=== PATIENT | male | born 1945 | race Caucasian/White ===

== ENCOUNTER → 2017-01-06 | Outpatient (CLI) | payer MEDICARE, OTHER ==
--- NOTE | 2017-01-06 14:37 | CT ---
EXAM DESCRIPTION: Abdomen w/wo Contrast CLINICAL HISTORY: 71 years Male, MALIGNANT CARCINOID TUMER OF SMALL INTESTINE COMPARISON: June 18, 2016 TECHNIQUE: Pre and postcontrast CT images of the abdomen are obtained. FINDINGS: Diffuse heterogeneous attenuation of the liver is seen compared to previous exam. There is overall diffuse heterogeneous fatty infiltration of the liver with focal areas of enhancement. The largest lesion in the left lobe of the liver shows heterogeneous attenuation on today's exam measuring 5.6 cm compared to 4.5 cm previously. Largest enhancing lesion in the inferior right lobe of the liver measures 5.3 cm compared to 4.1 cm previously. The visualized lung bases show no acute findings. Increased AP diameter of the chest is seen. The right retrocrural lymph node now measures 17 mm stable from previous. Lymph nodes in the periportal region are stable in size and number. The left periaortic lymph nodes are relatively unchanged. No new mesenteric lymphadenopathy is seen. Surgical suture line in small bowel of the right central abdomen is seen. Mild groundglass attenuation to the root of the mesentery is noted. Nonobstructing bilateral nephrolithiasis is seen. 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 The stomach is unremarkable. Occasional diverticula in the colon are seen without associated inflammatory changes or fluid collections. Nodule in the right adrenal gland is stable from previous. [id number] degenerative changes of the spine are seen. The pancreas, spleen, and gallbladder are unremarkable. IMPRESSION: New diffuse heterogeneous appearance to the liver. The innumerable hepatic lesions now show enhancement and are overall increased size compared to previous exam. The appearance of the liver and these lesions could represent interval posttherapeutic changes. Stable appearance to right retrocrural, periportal, and left para-aortic lymphadenopathy compared to previous. No CT evidence of local tumor recurrence. Nonobstructive bilateral nephrolithiasis. Electronically signed by: Dwayne Salgado MD 01/06/2017 2:36 PM [employer]
== END | disposition home or self-care (01) ==
LOC: CT 08:22
PROVIDERS: ATTEND Internal Medicine Hematology & Oncology
DX: C7A.019 Malignant carcinoid tumor of the small intestine, unspecified portion (principal)

== ENCOUNTER 2017-02-11 21:34 | Emergency (ER) | payer MEDICARE, OTHER ==
--- NOTE | 2017-02-11 22:14 | ED.PDOC ---
History of Present Illness - General Chief Complaint: Upper Extremity Injury Stated Complaint: ELBOW SWELLING Time Seen by Provider: 02/11/17 21:48 Source: patient, RN notes reviewed, Vital Signs reviewed Exam Limitations: no limitations - History of Present Illness Initial Comments: During physical therapy therapist noticed that L elbow appeared to be swollen. Patient came in to get it checked out. It is a little bit painful but otherwise is not bothering him. Occurred: this afternoon Pain - Upper Extremity: mild: Elbow, left Method of Injury: unknown Improving Factors: nothing Worsening Factors: nothing Allergies/Adverse Reactions: Allergies Propoxyphene [From Darvocet-N] Allergy (Unknown, Verified 08/08/16 16:32) Home Medications: Ambulatory Orders Aspirin [Aspirin Adult Low Dose] 81 mg PO DAILY 06/19/16 Bismuth Subsalicylate [Kaopectate] 262 mg PO PRN PRN 06/19/16 Clonidine HCl 0.1 mg PO BID 06/19/16 Diphenoxylate W/ Atropine [Diphenoxylate/Atropine 2.5-0.025 mg] 2.5 mg PO PRN PRN 06/19/16 Gabapentin 600 mg PO BID 06/19/16 Glimepiride 1 mg PO DAILY 06/19/16 Metoprolol Succinate [Toprol XL] 100 mg PO BID 06/19/16 Multiple Vitamin [Multi Vitamin Mens] 1 tab PO DAILY 06/19/16 [place]-3 Fatty Acids [Fish Oil 1000 mg] 1 cap PO DAILY 06/19/16 Pantoprazole Sodium 40 mg PO DAILY 06/19/16 Zolpidem Tartrate 10 mg PO BEDTIME 06/19/16 amLODIPine BESYLATE [Norvasc] 5 mg PO BID 06/19/16 ALPRAZolam [Xanax] 0.5 mg PO TID 09/15/16 Aspirin [Aspirin Adult Low Dose] 162 mg PO DAILY 09/15/16 Atorvastatin Calcium [Lipitor] 20 mg PO DAILY 09/15/16 Chlorthalidone 25 mg PO DAILY 09/15/16 HYDROcodone 7.5MG/APAP 325MG [[place] 7.5/325] 1 tab PO Q4HR 09/15/16 Pancrelipase (Lipase-Protease- [Creon] 3 cap PO TID 09/15/16 Telmisartan [Micardis] 80 mg PO DAILY 09/15/16 Review of Systems - Review of Systems Constitutional: States: no symptoms reported Musculoskeletal: States: see HPI, joint pain - mild, joint swelling - L elbow Skin: States: no symptoms reported Neurological: States: no symptoms reported. Denies: numbness, paresthesia, tingling, weakness Past Medical History (General) - Patient Medical History Hx of COPD: Yes Hx Cardiac Disorders: Yes Hx Congestive Heart Failure: No Hx Pacemaker: No Hx Hypertension: Yes Hx Diabetes: Yes Hx Cancer: Yes - liver Cancer stage 4 Hx MRSA: No - Vaccination History Hx Tetanus, Diphtheria Vaccination: Yes Hx Influenza Vaccination: Yes Hx Pneumococcal Vaccination: No Immunizations Up to Date: Yes - Social History Hx Tobacco Use: No Hx Alcohol Use: No Hx Substance Use: No Hx Substance Use Treatment: No Hx Depression: No - Female History Patient : No Family Medical History - Family History Mother Family History: Unknown Living Status: Unknown Physical Exam - Physical Exam General Appearance: Alert, Comfortable, No apparent distress, Well Developed, Well Groomed, Well Hydrated, Well Nourished Elbow/Forearm Exam: soft tissue tenderness, swelling - L olecranon bursa is swollen and slightly tender. No warmth or signs of infection. Wrist Exam: normal inspection, non-tender, no evidence of injury, normal ROM Hand Exam: normal inspection, non-tender, no evidence of injury, normal ROM Neuro/Tendon: normal sensation, normal motor functions, normal tendon functions Mental Status: alert, oriented x 3 Skin Exam: normal color, warm/dry Progress - Progress Progress: 02/11/17 22:15 Edgar wrap placed on L elbow Advised Ice and Ibuprofen - EKG/XRAY/CT CT Ordered: No Departure - Departure Clinical Impression: Olecranon bursitis of left elbow Time of Disposition: 22:15 Disposition: Discharge to Home or Self Care Condition: Good Departure Forms: ED Discharge - Pt. Copy, Patient Portal Self Enrollment Instructions: DI for Elbow Bursitis Diet: resume usual diet Activity: increase activity as tolerated Home Medications: Ambulatory Orders Aspirin [Aspirin Adult Low Dose] 81 mg PO DAILY 06/19/16 Bismuth Subsalicylate [Kaopectate] 262 mg PO PRN PRN 06/19/16 Clonidine HCl 0.1 mg PO BID 06/19/16 Diphenoxylate W/ Atropine [Diphenoxylate/Atropine 2.5-0.025 mg] 2.5 mg PO PRN PRN 06/19/16 Gabapentin 600 mg PO BID 06/19/16 Glimepiride 1 mg PO DAILY 06/19/16 Metoprolol Succinate [Toprol XL] 100 mg PO BID 06/19/16 Multiple Vitamin [Multi Vitamin Mens] 1 tab PO DAILY 06/19/16 [place]-3 Fatty Acids [Fish Oil 1000 mg] 1 cap PO DAILY 06/19/16 Pantoprazole Sodium 40 mg PO DAILY 06/19/16 Zolpidem Tartrate 10 mg PO BEDTIME 06/19/16 amLODIPine BESYLATE [Norvasc] 5 mg PO BID 06/19/16 ALPRAZolam [Xanax] 0.5 mg PO TID 09/15/16 Aspirin [Aspirin Adult Low Dose] 162 mg PO DAILY 09/15/16 Atorvastatin Calcium [Lipitor] 20 mg PO DAILY 09/15/16 Chlorthalidone 25 mg PO DAILY 09/15/16 HYDROcodone 7.5MG/APAP 325MG [[place] 7.5/325] 1 tab PO Q4HR 09/15/16 Pancrelipase (Lipase-Protease- [Creon] 3 cap PO TID 09/15/16 Telmisartan [Micardis] 80 mg PO DAILY 09/15/16 Additional Instructions: Ice elbow for 20 minutes 3-5X/day OTC Ibuprofen as needed for pain/swelling
[2017-02-11 22:32] VITALS: BP 123/75; TEMP 98; O2SAT 97
== END 2017-02-11 22:32 | disposition home or self-care (01) ==
LOC: ER 21:34
DX: M70.22 Olecranon bursitis, left elbow (principal); J44.9 Chronic obstructive pulmonary disease, unspecified; I10 Essential (primary) hypertension; E11.9 Type 2 diabetes mellitus without complications; C22.8 Malignant neoplasm of liver, primary, unspecified as to type; Z88.8 Allergy status to other drugs, medicaments and biological substances; Z79.82 Long term (current) use of aspirin; Z79.899 Other long term (current) drug therapy

== ENCOUNTER → 2017-02-23 | Outpatient (CLI) | payer MEDICARE, OTHER | END | disposition home or self-care (01) | LOC: GMAJ 12:19 | PROVIDERS: ATTEND Family Medicine | DX: Z12.5 Encounter for screening for malignant neoplasm of prostate (principal); E78.00 Pure hypercholesterolemia, unspecified; E29.9 Testicular dysfunction, unspecified | CPT/HCPCS: 84403; 84443; G0103 ==

== ENCOUNTER 2017-03-10 21:36 | Emergency (ER) | payer MEDICARE, OTHER ==
[2017-03-10 21:59] VITALS: TEMP 98.2
[2017-03-10] MEDS ORDERED: OXYMETAZOLINE NASAL SPRAY 15 ML BTTL ONE (22:24)
--- NOTE | 2017-03-10 22:29 | ED.PDOC ---
History of Present Illness - General Chief Complaint: ENT Problem Stated Complaint: Nose bleed Time Seen by Provider: 03/10/17 22:18 Source: patient, RN notes reviewed, Vital Signs reviewed, family - Exam Limitations: no limitations - History of Present Illness Initial Comments: Patient is a 71 y/o male who had a nose bleed that started when he woke up and went to the bathroom this morning at around 0530. I stopped bleeding and he went back to bed, but when he woke up at about 0800, he had blood all over his shirt and his nose was bleeding again. He again was able to get it to stop and didn't have any problems until this evening. He went to his grandson's ball game and afterward, he was bending over talking to him when his nose started bleeding again. He called his physician and was told to come into the ED if it didn't stop. Now that he is here, the nose has stopped bleeding, but his is concerned it will again start tonight Timing/Duration: abrupt, this morning Severity: moderate EENT Location: nose Prearrival Treatment: squeezing nostrils, nasal packing Worsening Factors: immobilization Associated Symptoms: nasal congestion/drainage Allergies/Adverse Reactions: Allergies Propoxyphene [From Darvocet-N] Allergy (Unknown, Verified 08/08/16 16:32) Home Medications: Ambulatory Orders Aspirin [Aspirin Adult Low Dose] 81 mg PO DAILY 06/19/16 Bismuth Subsalicylate [Kaopectate] 262 mg PO PRN PRN 06/19/16 Clonidine HCl 0.1 mg PO BID 06/19/16 Diphenoxylate W/ Atropine [Diphenoxylate/Atropine 2.5-0.025 mg] 2.5 mg PO PRN PRN 06/19/16 Gabapentin 600 mg PO BID 06/19/16 Glimepiride 1 mg PO DAILY 06/19/16 Metoprolol Succinate [Toprol XL] 100 mg PO BID 06/19/16 Multiple Vitamin [Multi Vitamin Mens] 1 tab PO DAILY 06/19/16 [place]-3 Fatty Acids [Fish Oil 1000 mg] 1 cap PO DAILY 06/19/16 Pantoprazole Sodium 40 mg PO DAILY 06/19/16 Zolpidem Tartrate 10 mg PO BEDTIME 06/19/16 amLODIPine BESYLATE [Norvasc] 5 mg PO BID 06/19/16 ALPRAZolam [Xanax] 0.5 mg PO TID 09/15/16 Aspirin [Aspirin Adult Low Dose] 162 mg PO DAILY 09/15/16 Atorvastatin Calcium [Lipitor] 20 mg PO DAILY 09/15/16 Chlorthalidone 25 mg PO DAILY 09/15/16 HYDROcodone 7.5MG/APAP 325MG [[place] 7.5/325] 1 tab PO Q4HR 09/15/16 Pancrelipase (Lipase-Protease- [Creon] 3 cap PO TID 09/15/16 Telmisartan [Micardis] 80 mg PO DAILY 09/15/16 Past Medical History (General) - Patient Medical History Hx Stroke: No Hx of COPD: Yes Hx Cardiac Disorders: Yes - Stent Hx Congestive Heart Failure: No Hx Pacemaker: No Hx Hypertension: Yes Hx Diabetes: Yes Hx Cancer: Yes - liver Cancer stage 4 Hx MRSA: No - Vaccination History Hx Tetanus, Diphtheria Vaccination: Yes Hx Influenza Vaccination: Yes Hx Pneumococcal Vaccination: No Immunizations Up to Date: Yes - Social History Hx Tobacco Use: No Hx Alcohol Use: No Hx Substance Use: No Hx Substance Use Treatment: No Hx Depression: No - Female History Patient is a Female of Child Bearing Age (10 -59 yrs old): No Patient : No Family Medical History - Family History Mother Family History: Unknown Living Status: Unknown Physical Exam - Physical Exam General Appearance: Alert, Anxious, Comfortable, No apparent distress Eye Exam: bilateral normal Ear Exam: bilateral ear: auricle normal, canal normal, TM normal Nasal Exam: dried blood, other - Friable area noted just distal to the anterior turbinate which was cauterized. When nose started bleeding again, the focus of the bleeding could not be visualized. Throat Exam: normal mouth inspection, pharynx normal Neck: non-tender, supple Cardiovascular/Respiratory: no respiratory distress Neurologic: alert, normal mood/affect, oriented x 3 Skin Exam: normal color, warm/dry Progress - Progress Progress: 03/10/17 22:56 Examination of Patient's nasal mucosa showed a friable area just distal to the anterior turbinate which was cauterized. However, Patient's nose started bleeding again after the cauterization and the focus could not be visualized. Afrin was sprayed and a nasal clip applied to nose as well as an ice pack. Nasal clip was removed after 20 minutes. Patient denied any blood going down his throat and after clip was removed, there was no bleeding. Patient was advised that if his nose should start bleeding again, he is to use the Afrin and the nasal clip and ice. If that does not stop the bleeding, he is to come back into the ED and I will pack his nose. Patient voiced understanding. - Results/Orders Results/Orders: 03/10/17 03/10/17 21:55 21:56 Temperature 98.2 F Pulse Rate [ 56 L 56 L Left Radial] Respiratory 20 20 Rate Blood Pressure 161/99 [Left Arm] O2 Sat by Pulse 95 Oximetry - EKG/XRAY/CT CT Ordered: No CT Interpretation Call Back: No Procedures - Additional Procedures Progress: Nasal mucosal cauterization with silver nitrate. Departure - Departure Clinical Impression: Epistaxis Time of Disposition: 23:01 Disposition: Discharge to Home or Self Care Condition: Fair Departure Forms: ED Discharge - Pt. Copy, Patient Portal Self Enrollment Instructions: Mila, DI for Nosebleed Referrals: Devon Scott MD [Primary Care Provider] - 1-2 Weeks Home Medications: Ambulatory Orders Aspirin [Aspirin Adult Low Dose] 81 mg PO DAILY 06/19/16 Bismuth Subsalicylate [Kaopectate] 262 mg PO PRN PRN 06/19/16 Clonidine HCl 0.1 mg PO BID 06/19/16 Diphenoxylate W/ Atropine [Diphenoxylate/Atropine 2.5-0.025 mg] 2.5 mg PO PRN PRN 06/19/16 Gabapentin 600 mg PO BID 06/19/16 Glimepiride 1 mg PO DAILY 06/19/16 Metoprolol Succinate [Toprol XL] 100 mg PO BID 06/19/16 Multiple Vitamin [Multi Vitamin Mens] 1 tab PO DAILY 06/19/16 [place]-3 Fatty Acids [Fish Oil 1000 mg] 1 cap PO DAILY 06/19/16 Pantoprazole Sodium 40 mg PO DAILY 06/19/16 Zolpidem Tartrate 10 mg PO BEDTIME 06/19/16 amLODIPine BESYLATE [Norvasc] 5 mg PO BID 06/19/16 ALPRAZolam [Xanax] 0.5 mg PO TID 09/15/16 Aspirin [Aspirin Adult Low Dose] 162 mg PO DAILY 09/15/16 Atorvastatin Calcium [Lipitor] 20 mg PO DAILY 09/15/16 Chlorthalidone 25 mg PO DAILY 09/15/16 HYDROcodone 7.5MG/APAP 325MG [[place] 7.5/325] 1 tab PO Q4HR 09/15/16 Pancrelipase (Lipase-Protease- [Creon] 3 cap PO TID 09/15/16 Telmisartan [Micardis] 80 mg PO DAILY 09/15/16 Additional Instructions: If nose starts bleeding again, wet gauze with Afrin and insert into nose. Put nose clip on and ice. Leave for 20 minutes. If bleeding does not stop, return to ED. If it does, remove packing very carefully. Do not blow nose. Follow up with PCP if symptoms persist.
[2017-03-10 23:14] VITALS: BP 126/82; O2SAT 96
== END 2017-03-10 23:13 | disposition home or self-care (01) ==
LOC: ER 21:36
DX: R04.0 Epistaxis (principal); J44.9 Chronic obstructive pulmonary disease, unspecified; I10 Essential (primary) hypertension; E11.9 Type 2 diabetes mellitus without complications; C22.8 Malignant neoplasm of liver, primary, unspecified as to type; Z79.899 Other long term (current) drug therapy; Z79.82 Long term (current) use of aspirin; Z88.8 Allergy status to other drugs, medicaments and biological substances

== ENCOUNTER → 2017-03-26 | Outpatient (CLI) | payer MEDICARE, OTHER ==
--- NOTE | 2017-03-26 16:06 | RAD ---
EXAM DESCRIPTION: Knee,Left Complete CLINICAL HISTORY: 71 years, Male, PAIN IN LEFT KNEE COMPARISON: None TECHNIQUE: Three views of the left knee FINDINGS: The knee is normally aligned and mineralized. No fracture or deformity or destructive process is seen. No effusion or mass or foreign body is noted. Modest degenerative lipping at the articular margins without severe joint space narrowing or significant effusion is noted IMPRESSION: 1. Modest degenerative changes without acute abnormality. Electronically signed by: Efren Pittman MD 03/26/2017 4:06 PM CDT
--- NOTE | 2017-03-26 16:07 | RAD ---
EXAM DESCRIPTION: Pelvis CLINICAL HISTORY: 71 years Male, PAIN IN LEFT HIP COMPARISON: None. FINDINGS: Single view of the pelvis demonstrates a the distal extent of an aortoiliac endoprosthesis in place at the upper extent of the abdomen show. The bony pelvis is intact and mild hip degenerative arthropathy is present without pelvic fracture. The right and left hips are symmetric on this single view. IMPRESSION: Mild osteopenia and degenerative changes without acute abnormality or destructive change of the left hip. Electronically signed by: Efren Pittman MD 03/26/2017 4:07 PM CDT
== END | disposition home or self-care (01) ==
LOC: RAD 08:57
PROVIDERS: ATTEND Orthopaedic Surgery
DX: M25.552 Pain in left hip (principal); M25.562 Pain in left knee

== ENCOUNTER → 2017-04-03 | Outpatient (CLI) | payer MEDICARE, OTHER | END | disposition home or self-care (01) | LOC: GMA 18:29 | PROVIDERS: ATTEND Nurse Practitioner Family | DX: M25.439 Effusion, unspecified wrist (principal) ==

== ENCOUNTER → 2017-07-08 | Outpatient (CLI) | payer MEDICARE, OTHER ==
--- NOTE | 2017-07-08 11:20 | CT ---
EXAM DESCRIPTION: CT ABDOMEN WITHOUT AND WITH CONTRAST CLINICAL HISTORY: MALIGNANT CARCINOID TUMOR OF SMALL INTESTINE COMPARISON: January 06, 2017 TECHNIQUE: CT of the abdomen is performed prior to and during IV bolus administration of nonionic contrast. Oral contrast enhancement was not utilized. This exam was performed according to our departmental dose-optimization program, which includes automated exposure control, adjustment of the mA and/or kV according to patient size and/or use of iterative reconstruction technique. FINDINGS: The lung bases demonstrate mild atelectasis or scarring without evidence of metastatic disease or pleural effusions. The liver is markedly abnormal with moderate hepatomegaly with diffuse tumor involvement within the liver with evidence of definite progression of the disease with enlargement of at least some of the lesions evident. Other lesions are relatively stable but resolution or a pattern of significant improvement is not apparent. Level of peripheral enhancement of the hepatic metastatic disease appears slightly less intense than previously seen. A few of the lesions may be very slightly smaller than previously evident. Small normal spleen and atrophic pancreas are noted. An aortic endoprosthesis is unchanged in appearance. Nonobstructing multiple bilateral intrarenal calculi are evident. The kidneys normally enhance without mass or cyst or obstruction. Small normal adrenal glands are noted. Intra-abdominal ascites or mesenteric or peritoneal metastatic implants are not apparent. Large and small bowel caliber is normal in a surgical anastomosis in the right side of the abdomen in the subhepatic location shows no evidence of obstruction. Examination was continued inferiorly to the level of the iliac crest with evaluation of the pelvis not performed. IMPRESSION: 1. Evolving extensive hepatic metastatic disease with most of the hepatic metastases the same and unchanged from prior study with at least one or two of the larger lesions increased in size in comparison to prior December examination. A few of the smaller lesions or very slightly smaller in comparison to prior study. Overall at least mild deterioration in the appearance of the liver is evident in comparison to prior study. 2. Bilateral nonobstructing renal stone disease and evidence of prior aortic endoprosthesis placement, unchanged. 3. Mild basilar atelectatic or fibrotic lung disease. 4. Abdominal ascites or new metastatic disease within the peritoneal cavity or mesentery not apparent. Electronically signed by: Efren Pittman MD 07/08/2017 11:19 AM CDT
== END ==
LOC: CT 08:00
PROVIDERS: ATTEND Internal Medicine Hematology & Oncology
DX: C7A.019 Malignant carcinoid tumor of the small intestine, unspecified portion (principal)

== ENCOUNTER → 2018-03-25 | Outpatient (CLI) | payer MEDICARE ==
--- NOTE | 2018-03-25 12:06 | CT ---
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 TECHNIQUE: Contiguous 3 mm axial images were obtained from the lung bases to the level of the proximal femora after the administration of intravenous and oral contrast. Sagittal and coronal reconstructions were reviewed. FINDINGS: THORAX: Mild atelectasis is noted in the bilateral lung bases. The imaged lower thorax otherwise appears normal. LIVER: Again noted are multiple metastatic lesions throughout the liver, some of which demonstrate central necrosis in the interim. The largest of these lesions noted in segment 3 measures 8.9 x 7.2 cm compared to 6.9 x 6.4 cm on prior examination. Some of the lesions appear unchanged in size compared to prior examination. GALLBLADDER: Grossly unremarkable. PANCREAS: Appears normal with no cystic or solid lesions. SPLEEN: Normal ADRENAL GLANDS: Normal with no nodules or masses. KIDNEYS: Multiple nonobstructive calculi are noted in both kidneys. No hydronephrosis or perinephric fluid collections No focal masses are identified. The visualized ureters appear grossly unremarkable. STOMACH: The stomach is nondistended limiting detailed evaluation SMALL BOWEL: Changes of small bowel surgery are identified. No bowel obstruction. LARGE BOWEL: The colon is adequately distended with no gross abnormality. The appendix is well-visualized and appears normal No evidence of free intraperitoneal air or fluid. RETROPERITONEUM: Aorta bilateral iliac stent graft is again identified with no evidence of complications. The agda[place] aneurysmal sac measures 4.1 x 3.9 cm and appears unchanged compared to prior examination. The inferior vena cava is normal in size and caliber. Again identified are a few mesenteric lymph nodes, unchanged compared to prior study. URINARY BLADDER:The urinary bladder is well-distended with no gross abnormality. The prostate gland and seminal vesicles appear normal ADDITIONAL FINDINGS: Small bilateral fat-containing hernias are noted BONES: Mild degenerative changes are identified in the visualized bones.No evidence of osteophytic or osteoblastic lesions. IMPRESSION: 1. Aorto bilateral iliac stent graft is again identified with no evidence of complications. 2. Multiple hepatic metastasis with variable progression compared to prior examination. Some of these lesions have increased in size and demonstrate central necrosis which could be secondary to treatment. Some of the lesions appear stable. 3. No evidence of metastatic disease within the remainder of the abdomen and pelvis. 4. Persistent nonobstructing nephrolithiasis of both kidneys. This exam was performed according to our departmental dose-optimization program, which includes automated exposure control, adjustment of the mA and/or kV according to patient size and/or use of iterative reconstruction technique. Electronically signed by: Gabi Cazares MD 03/25/2018 12:05 PM CDT
== END ==
LOC: LAB.O 08:30
PROVIDERS: ATTEND Family Medicine
DX: I71.4 Abdominal aortic aneurysm, without rupture (principal); I10 Essential (primary) hypertension; N20.0 Calculus of kidney; C78.7 Secondary malignant neoplasm of liver and intrahepatic bile duct

== ENCOUNTER → 2018-05-18 | Outpatient (CLI) | payer MEDICARE ==
--- NOTE | 2018-05-18 17:10 | MRI ---
EXAM DESCRIPTION: Brain w/wo Contrast: Magnetic Resonance Imaging. CLINICAL HISTORY: DIZZINESS COMPARISON: CT scan of the head 03/24/2009. TECHNIQUE: Multiplanar, high-field MRI, multiple conventional sequences, without and with gadolinium IV contrast. No adverse reactions. Multiple axial diffusion sequences. FINDINGS: Multiple small foci of hyperintense FLAIR and T2-weighted signal in the periventricular white matter and gannon-white matter junctions of the cerebral hemispheres. . Relatively symmetric. Not associated with hemorrhage cerebral edema mass effect or diffusion restriction. Normal signal in the bilateral basal ganglia. No hemorrhage, no cerebral edema, no mass-effect. Normal contrast enhancement and diffusion. Normal signal in the brainstem and cerebellar hemispheres. No hemorrhage, no cerebral edema, no mass-effect. Normal contrast enhancement. Concordance of the diffusion and non-diffusion sequences with no evidence of acute or subacute infarction. Cortical sulci, ventricles, and other CSF spaces, and the subdural spaces are normally configured for patients age. No effacement or displacement. No midline shift. No extra-axial hemorrhage. Normal contrast enhancement. Normal flow signal void in the major vessels of the [place], and the venous sinuses. IACs are symmetric bilaterally. Normal signal in the bilateral mastoid air cells. No mass effect in the bilateral Cerebellopontine angles. Normal contrast enhancement. Pituitary gland occupies most of the sella. Normal contrast enhancement. Base of the cerebellar tonsils is above the foramen magnum. Minimal mucoperiosteal thickening in some of the paranasal sinuses. Minimal contrast enhancement. The bony calvarium is intact. IMPRESSION: 1. Bilateral multifocal lesions in the subcortical white matter and periventricular white matter without enhancement, mass effect, diffusion restriction, or hemorrhage. Most likely related to cerebral microvascular disease. Less likely representing demyelinating process, migraine headaches, inflammation, or vasculitis. 2. Normal noncontrast MRI diffusion study with no evidence of acute or chronic infarction. 3. Minimal chronic paranasal sinusitis. Electronically signed by: Omid Can MD 05/18/2018 5:09 PM CDT
== END ==
LOC: LAB.O 11:55
PROVIDERS: ATTEND Internal Medicine Hematology & Oncology
DX: C7A.019 Malignant carcinoid tumor of the small intestine, unspecified portion (principal); C78.02 Secondary malignant neoplasm of left lung; I25.10 Atherosclerotic heart disease of native coronary artery without angina pectoris; I25.2 Old myocardial infarction; J32.9 Chronic sinusitis, unspecified; I10 Essential (primary) hypertension; I71.4 Abdominal aortic aneurysm, without rupture; Z87.891 Personal history of nicotine dependence

== ENCOUNTER 2018-08-10 05:10 | Emergency (ER) | payer MEDICARE ==
[2018-08-10 05:38] VITALS: TEMP 99.7
[2018-08-10] MEDS ORDERED: cloNIDine HCL 0.1 MG TAB PO ONE (05:43)
[2018-08-10] MEDS ORDERED: HYDROCOD/APAP 5/325 (ER DISP) #3 TAB PO ONE (05:43)
--- NOTE | 2018-08-10 06:10 | ED.PDOC ---
History of Present Illness - General Source: patient Exam Limitations: no limitations - History of Present Illness Initial Comments: the patient is a 72-year-old male presented to the emergency room secondary to an elevated blood pressure of around 200/100 at home this morning. It is associated with a mild headache. 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 Over the last couple of days he has been getting intermittent headaches but has not checked his blood pressure until this morning. Additionally yesterday, in treatment of the carcinoid tumor, he received a couple shots of Sandostatin which can have the effect of bringing on an episode of hypertension as well as suppressing hormone secretion from an active tumor allowing for his normal hypertension to return. He is alert and oriented with no focal deficits. No evidence of any bleeding. He is pleasant and cooperative. Timing/Duration: unsure Severity: moderate Improving Factors: nothing Worsening Factors: nothing Associated Symptoms: headaches <Serg Herrera - Last Filed: 08/10/18 06:57> <Jaswinder Mario - Last Filed: 08/10/18 08:58> - General Chief Complaint: Blood Pressure Problem Stated Complaint: elevated blood pressure Time Seen by Provider: 08/10/18 05:32 - History of Present Illness Allergies/Adverse Reactions: Allergies Propoxyphene [From Darvocet-N] Allergy (Unknown, Verified 08/10/18 05:27) Home Medications: Ambulatory Orders Aspirin [Aspirin Adult Low Dose] 81 mg PO DAILY 06/19/16 Bismuth Subsalicylate [Kaopectate] 262 mg PO PRN PRN 06/19/16 Clonidine HCl 0.1 mg PO BID 06/19/16 Diphenoxylate W/ Atropine [Diphenoxylate/Atropine 2.5-0.025 mg] 2.5 mg PO PRN PRN 06/19/16 Gabapentin 600 mg PO BID 06/19/16 Glimepiride 1 mg PO DAILY 06/19/16 Metoprolol Succinate [Toprol XL] 100 mg PO BID 06/19/16 Multiple Vitamin [Multi Vitamin Mens] 1 tab PO DAILY 06/19/16 [place]-3 Fatty Acids [Fish Oil 1000 mg] 1 cap PO DAILY 06/19/16 Pantoprazole Sodium 40 mg PO DAILY 06/19/16 Zolpidem Tartrate 10 mg PO BEDTIME 06/19/16 amLODIPine BESYLATE [Norvasc] 5 mg PO BID 06/19/16 ALPRAZolam [Xanax] 0.5 mg PO TID 09/15/16 Aspirin [Aspirin Adult Low Dose] 162 mg PO DAILY 09/15/16 Atorvastatin Calcium [Lipitor] 20 mg PO DAILY 09/15/16 Chlorthalidone 25 mg PO DAILY 09/15/16 HYDROcodone 7.5MG/APAP 325MG [[place] 7.5/325] 1 tab PO Q4HR 09/15/16 Pancrelipase (Lipase-Protease- [Creon] 3 cap PO TID 09/15/16 Telmisartan [Micardis] 80 mg PO DAILY 09/15/16 Review of Systems - Review of Systems Constitutional: States: no symptoms reported EENTM: States: no symptoms reported Respiratory: States: no symptoms reported Cardiology: States: no symptoms reported Gastrointestinal/Abdominal: States: see HPI - he does have intermittent diarrhea related to carcinoid. This is not new however Genitourinary: States: no symptoms reported Musculoskeletal: States: no symptoms reported Skin: States: no symptoms reported Neurological: States: headache Endocrine: States: no symptoms reported All other Systems: No Change from Baseline <Serg Herrera - Last Filed: 08/10/18 06:57> Past Medical History (General) - Patient Medical History Hx Seizures: No Hx Stroke: No Hx Dementia: No Hx Asthma: No Hx of COPD: Yes Hx Cardiac Disorders: Yes - 1 stent, [place] 2000, AAA stent 2003 Hx Congestive Heart Failure: No Hx Pacemaker: No Hx Hypertension: Yes Hx Thyroid Disease: No Hx Diabetes: Yes Hx Gastroesophageal Reflux: Yes Hx Renal Disease: No Hx Cancer: Yes - liver Cancer stage 4 Hx of HIV: No Hx MRSA: No - Vaccination History Hx Tetanus, Diphtheria Vaccination: Yes Hx Influenza Vaccination: Yes Hx Pneumococcal Vaccination: No - Social History Hx Tobacco Use: No - Quit 2000 Hx Alcohol Use: No Hx Substance Use: No Hx Substance Use Treatment: No Hx Depression: No - Female History Patient : No <Serg Herrera - Last Filed: 08/10/18 06:57> Family Medical History - Family History Mother Family History: Unknown Living Status: Unknown <Serg Herrera - Last Filed: 08/10/18 06:57> Physical Exam - Physical Exam General Appearance: Alert, Comfortable, No apparent distress Eye Exam: bilateral normal Ears, Nose, Throat: hearing grossly normal, normal pharynx Neck: full range of motion, supple Respiratory: lungs clear, normal breath sounds, no respiratory distress, no accessory muscle use Cardiovascular/Chest: normal peripheral pulses, regular rate, rhythm, no edema Peripheral Pulses: radial,right: 2+, radial,left: 2+, dorsalis pedis,right: 2+, dorsalis pedis,left: 2+ Gastrointestinal/Abdominal: non tender, soft Rectal Exam: deferred Back Exam: no CVA tenderness, no vertebral tenderness Extremity: non-tender, normal inspection, no pedal edema, no calf tenderness, normal capillary refill Neurologic: cell stripper II-XII nml as tested, alert, normal mood/affect, oriented x 3 Skin Exam: normal color Comments: Vital Signs - 24 hr 08/10/18 08/10/18 05:15 05:35 Temperature 99.7 F H Pulse Rate [ 67 64 monitor] Respiratory 18 Rate Blood Pressure 194/109 190/94 [Left Arm] O2 Sat by Pulse 97 Oximetry <Serg Herrera - Last Filed: 08/10/18 06:57> Progress - Progress Progress: 08/10/18 06:58 the patient is a 72-year-old male presented to the emergency room with uncontrolled hypertension. The patient had a period of about a week to 2 weeks' duration of low blood pressures likely related to his carcinoid tumor. During that time he was reduced from 5 antihypertensive medications down to 1 at a much lower dose. He has not checked his blood pressures essentially for the last week but has noticed some increasing headaches. When he checked it this morning it was in the 200s over 100s range. He is alert and oriented with no focal deficits. We have restarted his clonidine at 0.1 mg and his metoprolol at 50 mg. His previous daily dose had been up to 100 mg on the metoprolol twice daily. He has not yet had time for the metoprolol to have its complete full effect. He is going to receive a dose of amlodipine. He has not yet received a dose of an ARB or his chlorthalidone or his full dose of his previous metoprolol dosing. I have discussed this with him and his who agree to marching up towards his previous medication dosings and see what response we get over the next hour or 2. At this point in time no additional studies have been performed. The patient also received 2 shots of Sandostatin yesterday which can be related to episodes of hypertension. The patient will be followed by the oncoming ER physician. The patient definitely has some significant anxiety. His blood pressure will rise 20-30 points on the systolic end just with talking about his cancer diagnosis. Certainly good blood pressure control is not at target here today but some improvement and some idea of what medications he needs to resume that had been removed would be the target here today. <Serg Herrera - Last Filed: 08/10/18 06:57> - Progress Progress: 08/10/18 07:19 CARE OF PT ASSUMED 0705 08/10/18 07:55 FEELS BETTER, BP 181/96, PENA RESOLVING 08/10/18 08:26 BP 160'S/80'S. CONTINUES TO FEEL BETTER. 08/10/18 08:53 D/W DR TAYLOR, WILL SEE THIS WEEK, DOUBLE METOPROLOL. <Jaswinder Mario - Last Filed: 08/10/18 08:58> Departure <Serg Herrera - Last Filed: 08/10/18 06:57> - Departure Time of Disposition: 08:55 <Jaswinder Mario - Last Filed: 08/10/18 08:58> - Departure Clinical Impression: Hypertensive urgency, Carcinoid tumor Hypertension Qualifiers: Hypertension type: essential hypertension Qualified Code(s): I10 - Essential ( primary) hypertension Disposition: Discharge to Home or Self Care Condition: Fair Departure Forms: ED Discharge - Pt. Copy, Patient Portal Self Enrollment Instructions: DI for High Blood Pressure Referrals: Devon Taylor MD [Primary Care Provider] - 08/12/18 10:15 am Home Medications: Ambulatory Orders Aspirin [Aspirin Adult Low Dose] 81 mg PO DAILY 06/19/16 Bismuth Subsalicylate [Kaopectate] 262 mg PO PRN PRN 06/19/16 Clonidine HCl 0.1 mg PO BID 06/19/16 Diphenoxylate W/ Atropine [Diphenoxylate/Atropine 2.5-0.025 mg] 2.5 mg PO PRN PRN 06/19/16 Gabapentin 600 mg PO BID 06/19/16 Glimepiride 1 mg PO DAILY 06/19/16 Metoprolol Succinate [Toprol XL] 100 mg PO BID 06/19/16 Multiple Vitamin [Multi Vitamin Mens] 1 tab PO DAILY 06/19/16 [place]-3 Fatty Acids [Fish Oil 1000 mg] 1 cap PO DAILY 06/19/16 Pantoprazole Sodium 40 mg PO DAILY 06/19/16 Zolpidem Tartrate 10 mg PO BEDTIME 06/19/16 amLODIPine BESYLATE [Norvasc] 5 mg PO BID 06/19/16 ALPRAZolam [Xanax] 0.5 mg PO TID 09/15/16 Aspirin [Aspirin Adult Low Dose] 162 mg PO DAILY 09/15/16 Atorvastatin Calcium [Lipitor] 20 mg PO DAILY 09/15/16 Chlorthalidone 25 mg PO DAILY 09/15/16 HYDROcodone 7.5MG/APAP 325MG [[place] 7.5/325] 1 tab PO Q4HR 09/15/16 Pancrelipase (Lipase-Protease- [Creon] 3 cap PO TID 09/15/16 Telmisartan [Micardis] 80 mg PO DAILY 09/15/16 Additional Instructions: DOUBLE YOUR CURRENT DOSE OF METOPROLOL. TAKE ONE OF YOUR CLONIDINE TABLETS IF THE TOP NUMBER IS 200 OR GREATER, OR THE BOTTOM NUMBER IS 100 OR GREATER. RECHECK YOUR BLOOD PRESSURE IN 30-45 MINUTES. COME BACK TO ER IF BP DOES NOT IMPROVE. YOU MAY TAKE THE CLONIDINE UP TO 3 TIMES DAILY NEEDED.
[2018-08-10] MEDS ORDERED: ALPRAZolam 0.25 MG TAB PO ONE (06:14)
[2018-08-10] MEDS ORDERED: METOPROLOL TARTRATE 50 MG TAB PO ONE (06:14)
[2018-08-10] MEDS ORDERED: amLODIPine BESYLATE 5 MG TAB PO ONE (06:57)
[2018-08-10 08:32] VITALS: O2SAT 95
[2018-08-10 09:39] VITALS: BP 169/87
== END 2018-08-10 09:35 | disposition home or self-care (01) ==
LOC: ER 05:10
DX: I16.0 Hypertensive urgency (principal); R51 Headache; C22.7 Other specified carcinomas of liver; I25.2 Old myocardial infarction; E11.9 Type 2 diabetes mellitus without complications; K21.9 Gastro-esophageal reflux disease without esophagitis; J44.9 Chronic obstructive pulmonary disease, unspecified; Z95.5 Presence of coronary angioplasty implant and graft; Z87.891 Personal history of nicotine dependence

== ENCOUNTER → 2018-09-14 | Outpatient (CLI) | payer MEDICARE ==
--- NOTE | 2018-09-14 18:40 | CT ---
EXAM DESCRIPTION: Abdomen/Pelvis w/wo Contrast: Computed Tomography. CLINICAL HISTORY: CARCINOID TUMOR COMPARISON: None. TECHNIQUE: Spiral-axial scans at 5 x 5 mm intervals through the abdomen and pelvis before and after nonionic IV contrast. No oral contrast. Coronal and sagittal 2.0 mm reconstructions. 5 mm Delayed helical-axial scans, liver through the pubic symphysis. No adverse reactions. Total Exam DLP 3692.78 mGy - cm. This exam was performed according to our departmental CT dose-optimization program which includes automated exposure control, adjustment of the mA and/or kV according to patient size and/or use of iterative reconstruction technique; to reduce radiation dose to as low as reasonably achievable (ALARA). FINDINGS: Lung bases and pleura: 1 cm bleb in the left lower lobe. Scarring or atelectasis in the right middle lobe. Minimal dependent atelectasis in the bases with no pleural effusion. Coronary artery calcifications. Stable since the prior study. Liver, Stomach, Spleen, Adrenal Glands: Craniocaudal dimension of the right lobe of the liver is 19.1 cm with transverse dimension of the liver 21.5 cm; transverse dimension has enlarged since the prior study (from 16.8 cm). Poorly defined enhancing masses are seen in all segments of the liver. The masses have central areas of low-density nonenhancing irregular necrosis. Large mass in the lateral segment of the left hepatic lobe measures approximately 9 x 7.7 cm and is abutting the capsule. Large mass in the superior right lower lobe measures 5 x 2.8 cm. These masses are interpreted to have enlarged since the prior study. It is difficult to determine if there are new masses in the liver. 2 lesions in the inferior right liver are less well-defined and interpreted to have decreased in size since the prior study. Stomach is unremarkable, other solid organs are negative. Pancreas, Gallbladder, Ducts: Common bile duct is distended mostly in the pancreatic head. Minimal distention proximal to the pancreatic head. Pancreas is unremarkable with no pancreatic duct obstruction. Minimal wall thickening of the gallbladder. No intrahepatic biliary dilatation. Kidneys and Ureters: 4 larger stones in the central collecting system of the left kidney, one more than previous. Stones in the inferior collecting system also increased in size. The largest of these, inferior mid collecting system, measures 6 mm. No hydronephrosis or hydroureter on the left. Large elongated stone in the inferior right kidney just below the mid collecting system. Largest stone measures 11 mm. No other stones are also seen. Minimal increase in size since the prior study. No hydronephrosis or perinephric edema hydroureter or periureteral edema on the right. Mesentery: Fluid in the anterior peritoneal reflection. No ascites around the liver and spleen. No fatty stranding or free air. Short axis precaval node at the level of the L3-4 disc space to the left of the aorta is 7 mm compared to 5 mm on the prior study the node just superior to this measures 7 mm short axis compared to 5 mm on the prior study. Node on the left of the aorta posterior to the left renal vein measures 8 mm short axis compared to 7 mm on the prior study. Lymph node at the junction of the left renal vein and IVC has enlarged from 7 mm short axis to 9 mm. Aorta: Again noted is infrarenal aortoiliac stent which terminates just above the bilateral bifurcation of the iliacs in the mid pelvis. No contrast leak into the true aneurysm is noted from the stent. Numerous atherosclerotic calcifications superior to the stent minimal poststenotic dilation of the proximal celiac axis. No para-aortic mass or contrast extravasation. Small Bowel: Anastomosis is noted in the right mid abdomen at the level of the inferior right renal pole. Anastomosis is slightly more distended than on the prior study with air-fluid level no free air or free fluid or mesenteric stranding. No small bowel obstruction. Terminal Ileum/Cecum: Normal caliber TI and cecum. Appendix normal caliber. No surrounding fluid or fatty stranding. Colon: Variable caliber with moderate redundancy of the sigmoid colon. No abnormal air-fluid levels. Pelvic Organs: Minimal bladder wall thickening. Prostate gland abutting the base of the urinary bladder. The gland contains calcifications in largest transverse dimensions are 3.7 x 5.1 cm. Also impressing on the seminal vesicles. Spine and Bony Pelvis: Minimal] lower lumbar levoscoliosis. Bilateral hip joint space narrowing medially with minimal hypertrophic changes on the acetabula which are over covering the bilateral femoral heads. Well-defined cystlike structure in the posterior left iliac with sclerotic margin is stable. No blastic or lytic lesions. Abdominal Wall/Back Soft Tissues: Ectasia of the umbilicus but not containing bowel. IMPRESSION: 1. Liver size is slightly enlarged since the prior study particularly in the transverse dimension. Lesions in the upper right lobe and the left lung have enlarged since the prior study. 2 lesions in the mid and inferior right lobe are interpreted to have decreased in size since the prior study. 2. Location of prior small bowel anastomosis in the mid right abdomen at approximately the L3 L2 level is slightly more distended than on the prior study but no marked distention, no free fluid or free air. No recurrent mass. Proximal small bowel is normal caliber. 3. Multiple bilateral renal stones, with several greater than 5 mm diameter. These have enlarged and increased in number since the prior study. No hydronephrosis or hydroureter bilaterally. 4. Stable aortoiliac stent. Periaortic and pericaval lymph nodes showing slight enlargement since the prior study. No new peritoneal or retroperitoneal masses. 5. Stable enlarged prostate gland impressing on the base of the urinary bladder and minimal bladder wall thickening. Electronically signed by: Omid Can MD 09/14/2018 6:39 PM [employer]ER
== END ==
LOC: CT 09:30
PROVIDERS: ATTEND Internal Medicine Hematology & Oncology
DX: C7A.019 Malignant carcinoid tumor of the small intestine, unspecified portion (principal); R16.0 Hepatomegaly, not elsewhere classified; N20.0 Calculus of kidney; N40.0 Benign prostatic hyperplasia without lower urinary tract symptoms; Z95.820 Peripheral vascular angioplasty status with implants and grafts